=== PATIENT | female | born 1985 | race African-American/Black ===

== ENCOUNTER 2020-06-13 10:40 | Emergency (ER) | payer OTHER ==
[2020-06-13 10:51] VITALS: BP 114/73; PULSE 77; TEMP 98.6; BMI 25.8
--- OUTSIDE RECORDS SUMMARY | 2020-06-13 11:00 | XMS ---
:1985 [facility] Support Name Relationship Address Phone UE Unavailable Unavailable Unavailable LEON SRIVASTAVA [address] [place] [address] Re-disclosure Warning The records that you are about to access may contain information from federally- assisted alcohol or drug abuse programs. If such information is present, then the following federally mandated warning applies: This information has been disclosed to you from records protected by federal confidentiality rules (42 CFR part 2). The federal rules prohibit you from making any further disclosure of this information unless further disclosure is expressly permitted by the written consent of the person to whom it pertains or as otherwise permitted by 42 CFR part 2. A general authorization for the release of medical or other information is NOT sufficient for this purpose. The Federal rules restrict any use of the information to criminally investigate or prosecute any alcohol or drug abuse patient.The records that you are about to access may contain highly sensitive health information, the redisclosure of which is protected by Article 27-F of the [facility] Public Health law. If you continue you may haveaccess to information: Regarding HIV / AIDS; Provided by facilities licensed or operated by the [facility] Office of Mental Health; or Provided by the [facility] Office for People With Developmental Disabilities. If such information is present, then the following [facility] mandated warning applies: This information has been disclosed to you from confidential records which are protected by state law. State law prohibits you from making any further disclosure of this information without the specific written consent of the person to whom it pertains, or as otherwise permitted by law. Any unauthorized further disclosure in violation of state law may result in a fine or shelter sentence or both. A general authorization for the release of medical or other information is NOT sufficient authorization for further disclosure. Insurance Providers Payer name Policy type Policy ID Covered Covered green party's Policy P reena / Coverage green party ID relationship to [employer] Inf ormation type [employer] [id number] SP [id number] HEALTH PLAN Results ID Date Data Source [id number] 05/05/2020 12:00:00 AM EDT [facility] Name Value Range Interpretation Code Description Data Josy rce(s) Supporting Document(s ) [facility]- Imp This lab was ordered by [facility] NAT[facility] yoo nd reported by [employer] Procedure
[2020-06-13] MEDS ORDERED: CYCLOBENZAPRINE HCL 10 MG TABLET (FP) PO ONE (11:07)
[2020-06-13] MEDS ORDERED: LIDOCAINE 5% TOPICAL PATCH TP ONE (11:07)
[2020-06-13] MEDS ORDERED: CYCLOBENZAPRINE HCL 10 MG TABLET (FP) ONE (11:23)
[2020-06-13] MEDS ORDERED: LIDOCAINE 5% TOPICAL PATCH ONE (11:23)
--- NOTE | 2020-06-13 11:23 | PDOC ---
History of Present Illness - General Chief Complaint: Back Pain Stated Complaint: BACK PAIN Time Seen by Provider: 06/13/20 10:59 History Source: Patient Exam Limitations: No Limitations - History of Present Illness Initial Comments: 06/13/20 11:19 Patient is a 35-year-old female with no past medical history who presents to the ED with complaint of 3 months of low back pain which has been worsening. She describes the pain as crampy and spasm-like. She states the pain radiates proximally to her thoracic back. She states the pain is primarily on the left side. She states she believes that the pain started after having her baby. She denies any fecal or urinary incontinence or retention. She denies any difficulty walking. She states the pain has been getting worse and she almost fell on 2 separate occasions while holding her baby. She states this concerned her enough to come to the ED for evaluation. She denies any numbness or tingling. Past History - Medical History Allergies/Adverse Reactions: Allergies Allergy/AdvReac Type Severity Reaction Status Date / Time No Known Allergies Allergy Verified 06/13/20 11:17 Home Medications: Ambulatory Orders Cyclobenzaprine HCl [Flexeril 10 mg] 10 mg PO BID PRN #20 tablet 06/13/20 Lidocaine 5% Patch [Lidoderm Patch -] 1 patch TP DAILY PRN #7 patch 06/13/20 - Reproductive History Is Patient Now?: No - Psycho-Social/Smoking History Smoking History: Never smoked Review of Systems - Review of Systems Comments:: 06/13/20 11:21 - Review of Systems Able to Perform ROS?: Yes Constitutional: No: Fever, Chills, Loss of Appetite, Night Sweats, Weakness HEENTM: No: Eye Pain, Vision changes, Ear Pain, Throat Pain, Throat Swelling, Mouth Pain, Difficulty Swallowing Respiratory: No: Cough, Shortness of Breath, Wheezing, Sputum Production Cardiac (ROS): No: Chest Pain, Chest Tightness, Palpitations, Irregular Heart Beat, Edema ABD/GI: No: Nausea, Vomiting, Abdominal Pain, Diarrhea : No Dysuria, No Hematuria, No Frequency, No Urgency, No Vaginal Discharge/Pain Musculoskeletal: No: Muscle Pain, Joint Pain, Muscle Weakness, Neck Pain, positive: Low back Pain Integumentary: No: Lesions, Rash Neurological: No: Headache, Numbness, Tingling, Weakness, Speech Difficulties *Physical Exam - Vital Signs Last Vital Signs Temp Pulse Resp BP Pulse Ox 98.6 F 77 18 114/73 100 06/13/20 10:50 06/13/20 10:50 06/13/20 10:50 06/13/20 10:50 06/13/20 10:50 - Physical Exam 06/13/20 11:22 - Physical Exam General Appearance: Nourished, Appropriately Dressed, No Distress; patient is well dressed and wearing high heels. HEENT: EOMI, Normal Voice, No Pharyngeal Erythema, No Muffled/Hoarse voice, No Tonsillar Exudate, No Tonsillar Erythema, No Nasal Congestion, No Rhinorrhea, Hearing Grossly Normal, TMs Normal, No TM Bulging, No TM Dullness, No TM Erythema Neck: Supple, No Lymphadenopathy (R), No Lymphadenopathy (L), No Rigidity, No Decreased range of motion Respiratory/Chest: Lungs Clear, Normal Breath Sounds. No Respiratory Distress, No Accessory Muscle Use Cardiovascular: Regular Rhythm, Regular Rate, S1, S2 Gastrointestinal/Abdominal: Normal Bowel Sounds, Soft. Non-tender, No Guarding, No Rebound, No Rigidity Musculoskeletal: Normal Inspection. No Decreased Range of Motion; no reproducible low back tenderness to palpation. 5/5 strength bilateral lower extremities. Normal gait. Sensation equal to light touch to the bilateral lower extremities. EHL intact bilaterally. No saddle anesthesia appreciated. No midline back tenderness to palpation. Extremity: Normal Capillary Refill, Normal Inspection Integumentary: Normal Color, Dry. No Rash Neurologic: strategic debriefing officer II-XII NML intact, Fully Oriented, Alert, Normal Mood/Affect, Normal Response ED Treatment Course - RADIOLOGY Radiology Studies Ordered: Category Date Time Status SPINE-LUMBAR ONLY [RAD] Stat Radiology 06/13/20 11:07 Ordered Medical Decision Making - Medical Decision Making 06/13/20 11:23 Assessment: Patient is a 35-year-old female with low back pain for 3 months. Plan: -Lumbar spine x-ray ordered -Flexeril and Lidoderm patch ordered -Will reassess 06/13/20 11:52 Patient's lumbar x-ray shows straightening of the normal lumbar lordosis consistent with spasm. We will send a prescription for Flexeril and Lidoderm patches to the pharmacy. The patient to follow-up with her primary doctor within 1 to 2 days for repeat evaluation. She understands and agrees this treatment plan and she is stable for discharge. Discharge - Discharge Information Problems reviewed: Yes Clinical Impression/Diagnosis: Low back pain Qualifiers: Chronicity: acute Back pain laterality: left Sciatica presence: without sciatica Qualified Code(s): M54.5 - Low back pain Condition: Stable Disposition: HOME - Additional Discharge Information Prescriptions: Cyclobenzaprine HCl [Flexeril 10 mg] 10 mg PO BID PRN #20 tablet PRN Reason: Muscle Spasms Lidocaine 5% Patch [Lidoderm Patch -] 1 patch TP DAILY PRN #7 patch PRN Reason: Pain - Follow up/Referral Referrals: Ming Rushing MD [Staff Physician] - - Patient Discharge Instructions Patient Printed Discharge Instructions: DI for Low Back Pain Additional Instructions: Get plenty of rest and drink plenty of fluids. Use the Lidoderm patches as needed for low back pain. Take the Flexeril, muscle relaxer, as needed for spasms or severe muscle pain. Be aware that the Flexeril can cause drowsiness so do not drive or operate machinery while taking it. You can take Tylenol or ibuprofen as well to the medications that have been prescribed. Follow-up with your primary doctor within 1 to 2 days for repeat evaluation. If your pain persists, you can follow-up with a spine surgeon and a referral has been given to you. - Post Discharge Activity Work/Back to School Note: Back to Work
[2020-06-13] MEDS ORDERED: LIDOCAINE PATCH REMOVAL MC ONE (22:00)
== END 2020-06-13 12:15 | disposition home or self-care (01) ==
LOC: JERFT 10:40
DX: M54.5 Low back pain (principal)
CPT/HCPCS: 72100-TC-FY; 99284-25

== ENCOUNTER 2020-12-24 12:24 | Emergency (ER) | payer OTHER ==
[2020-12-24 12:44] VITALS: BMI 26.6
[2020-12-24] MEDS ORDERED: CYCLOBENZAPRINE HCL 10 MG TABLET (FP) PO ONE (15:35)
[2020-12-24] MEDS ORDERED: IBUPROFEN 600 MG TABLET (FP) PO ONE ×2 (15:35→15:45)
[2020-12-24] MEDS ORDERED: CYCLOBENZAPRINE HCL 10 MG TABLET (FP) ONE (15:44)
[2020-12-24 16:00] VITALS: BP 122/75; PULSE 85; TEMP 98
== END 2020-12-24 15:59 | disposition home or self-care (01) ==
LOC: JER 12:24
DX: M54.2 Cervicalgia (principal)
CPT/HCPCS: 72050-TC-FY; 99283-25